=== PATIENT | female | born 1945 | race Caucasian/White ===

== ENCOUNTER 2020-08-31 15:40 | Outpatient (CLI) | payer MEDICARE, OTHER | END 2020-08-31 15:41 | disposition home or self-care (01) | LOC: CSHRAD 15:40 | PROVIDERS: ATTEND Internal Medicine Rheumatology | DX: M47.9 Spondylosis, unspecified (principal); G89.29 Other chronic pain; M47.816 Spondylosis without myelopathy or radiculopathy, lumbar region; M41.86 Other forms of scoliosis, lumbar region | CPT/HCPCS: 72110; 72202 ==